=== PATIENT | female | born 1935 | race Caucasian/White ===

== ENCOUNTER 2021-12-04 15:19 | Emergency (ER) | payer OTHER ==
[~2021-12-04] VITALS: Ht 160 cm; Wt 65.8 kg
[~2021-12-04 15:19] MED LIST: CRESTOR10 M1 PO; NORVASC2.5 MG PO; PLAVIX75 M1 PO; TOPROL XL25 MG PO
[2021-12-04 16:37] LABS: BILIRUBIN 1+ (Negative); BLOOD 3+ (Negative); CLARITY Turbid (Clear); COLOR Red (Yellow); GLUCOSE Negative (Negative); KETONE Negative (Negative); LEUKO ESTERASE 2+ (Negative); NITRITE Negative (Negative); PH 6.5 (4.5-8.0); UROBILINOGEN 0.2 E.U./dl (0.0-1.0)
[2021-12-04 16:46] LABS: RBC TNTC rbc/hpf (0-2); WBC TNTC wbc/hpf (0-5)
[2021-12-04] MEDS ORDERED: LEVOFLOXACIN750 M2 PO (17:04)
== END 2021-12-04 17:13 ==
LOC: ED 15:19
PROVIDERS: Student in an Organized Health Care Education/Training Program
DX: N39.0 Urinary tract infection, site not specified (principal); R31.0 Gross hematuria; Z88.8 Allergy status to other drugs, medicaments and biological substances; Z90.710 Acquired absence of both cervix and uterus

== ENCOUNTER 2022-12-31 09:48 | Emergency (ER) | payer OTHER ==
[~2022-12-31] VITALS: Wt 65.1 kg
[~2022-12-31 09:48] MED LIST changes: +LEVOFLOXACIN750 M2 PO
[2022-12-31 10:31] LABS: BASO # 0.1 10*3/uL (0.0-0.1); BASO % 0.8 % (0.0-1.0); EOS # 0.3 10*3/uL (0.0-0.4); HEMATOCRIT 42.2 % (37.0-47.0); LYMPH # 2.5 10*3/uL (1.3-4.4); LYMPH % 31.3 % (27.0-41.0); MEAN CELL VOLUME 88.7 fl (81.0-99.0); MEAN CORPUSCULAR HGB 29.8 pg (27.0-31.0); MEAN CORPUSCULAR HGB CONC 33.6 g/dl (33.0-37.0); MEAN PLATELET VOLUME 9.5 fl (9.6-12.3); MONO # 0.6 10*3/uL (0.1-1.0); MONO % 7.4 % (3.0-9.0); NEUT # 4.4 10*3/uL (2.3-7.9); NEUT % 56.2 % (47.0-73.0); PLATELET COUNT AUTOMATED 288 10*3/uL (130-400); RED BLOOD COUNT 4.76 10*6/uL (4.10-5.10); WHITE BLOOD COUNT 7.8 10*3/uL (4.8-10.8)
[2022-12-31 10:49] LABS: ALKALINE PHOSPHATASE 83 U/L (46-116); BUN 14 mg/dl (9-23); CHLORIDE 105 mmol/L (98-107); LIPASE 39 U/L (12-53); POTASSIUM 4.2 mmol/L (3.4-5.1); SGPT/ALT 10 U/L (10-49)
[2022-12-31 11:04] LABS: BILIRUBIN Negative (Negative); BLOOD Trace-Intact (Negative); CLARITY Clear (Clear); COLOR Yellow (Yellow); GLUCOSE Negative (Negative); KETONE Negative (Negative); LEUKO ESTERASE Negative (Negative); NITRITE Negative (Negative); PH 6.5 (4.5-8.0); UROBILINOGEN 0.2 E.U./dl (0.0-1.0)
[2022-12-31 11:18] LABS: BACTERIA TRACE; WBC 0-2 wbc/hpf (0-5)
[2022-12-31] MEDS ORDERED: ASPIRIN ADULT L81 M2 PO (11:30)
[2022-12-31] MEDS ORDERED: Ipratropium Brom3 ML INH (11:31)
[2022-12-31] MEDS ORDERED: PANTOPRAZOLE SO40 MG PO (11:33)
[2022-12-31] MEDS ORDERED: Lopressor25 MG PO (11:33)
[2022-12-31] MEDS ORDERED: XARE20MG PO (11:33)
[2022-12-31] MEDS ORDERED: ACETAMINOPHEN325 M2 PO (11:35)
[2022-12-31] MEDS ORDERED: ANTI-DIARRHEAL2 MG PO (11:37)
[2022-12-31] MEDS ORDERED: PHARMASSURE VI100 MG PO (11:38)
[2022-12-31] MEDS ORDERED: B-12 DOTS500 MCG PO (11:38)
== END 2022-12-31 15:04 ==
LOC: ED 09:48
PROVIDERS: Family Medicine
DX: R33.9 Retention of urine, unspecified (principal); I10 Essential (primary) hypertension; Z90.710 Acquired absence of both cervix and uterus